=== PATIENT | male | born 1980 | race Caucasian/White ===

== ENCOUNTER 2019-06-21 13:31 | Emergency (ER) | payer OTHER ==
[~2019-06-21] VITALS: Ht 172.7 cm; Wt 68.0 kg
--- NOTE | 2019-06-21 13:31 | NUR ---
PATIENT TO BED 5 BY EMS AT THIS TIME.
--- NOTE | 2019-06-21 13:37 | NUR ---
DR. MIKE AT BEDSIDE EVALUATING PATIENT.
[2019-06-21 13:40] VITALS: BP 113/70
[2019-06-21] MEDS: NACL 0.9% 1,000 ML IV ONE ×2 (14:03→17:24)
[2019-06-21 14:28] LABS: BASOPHILS # (AUTO) 0.1 K/uL (0.00-0.22); EOSINOPHILS % (AUTO) 0.3 % (0.0-4.0); HEMATOCRIT 39.2 % (36-52); HEMOGLOBIN 13.2 g/dL (12.0-18.0); LYMPHOCYTES # (AUTO) 1.3 K/uL (2.0-11.5); MEAN CORPUSCULAR HEMOGLOBIN 31 pg (27-31); MEAN CORPUSCULAR HGB CONC 34 g/dL (33-37); MONOCYTES # (AUTO) 0.3 K/uL (0.8-1.0); MONOCYTES % (AUTO) 5.1 % (1.7-9.3); NEUTROPHILS # (AUTO) 3.5 K/uL (1.8-7.7); NEUTROPHILS % (AUTO) 68.6 % (42.2-75.2); PLATELET COUNT (AUTO) 297 K/uL (140-450); RED BLOOD CELL COUNT(AUTO) 4.22 MIL/uL (4.20-6.10); RED CELL DISTRIBUTION WIDTH 13.7 % (11.6-13.7); WHITE BLOOD COUNT (AUTO) 5.1 K/uL (4.8-10.8)
--- NOTE | 2019-06-21 14:28 | NUR ---
PT BIBA WITH C/O ALOC. PT WAS FOUND IN PARKING LOT OF [place] [employer] ON SCENE [employer] STICKS WERE USED TO AWAKE PT. 1/2 PINT OF ALCOHOL WAS FOUND ON SCENE. 20 GAUGE L. AC ESTABLISHED ON SCENE. PT ONLY ABLE TO STATE NAME. PT PRESENTS WITH A SLURRED SPEECH AND IS NOT ABLE TO CONVERSE APPROPRIATELY. PUPILS 6MM SLUGGISH. MILD WEAKNESS BILATERALLY. SKIN IS WARM, PINK, AND DRY. VSS. PT POSITIONED FOR COMFORT. HOB ELEVATED. BED RAIL UP X 2 FOR PT SAFETY. ER MD AWARE OF PT STATUS. ALLERGIES: NKA MED HX: DEPRESSION AND ETOH ABUSE RX: UNKNOWN
--- NOTE | 2019-06-21 14:29 | NUR ---
PER , PT LEFT REHAB 3 DAYS AGO. PT WAS IN REHAB FOR 2 MONTHS FOR ALCOHOL USE.
[2019-06-21 14:51] LABS: ANION GAP 17.2 (8-16); CARBON DIOXIDE 25.8 mmol/L (21-32); CHLORIDE 105 mmol/L (98-107); CREATININE 0.9 mg/dL (0.7-1.3); GFR ARICAN-AMERICAN 121 mL/min (>90); GLUCOSE 108 mg/dL (74-106); SODIUM SERUM 144 mmol/L (136-145); UREA NITROGEN, BLOOD 8 mg/dL (7-18)
[2019-06-21 15:05] LABS: ALBUMIN 3.6 g/dL (3.4-5.0); ASPARTATE AMINOTRANSFERASE 60 U/L (15-37); SALICYLATE < 2.8 mg/dL (2.8-20.0); TOTAL BILIRUBIN 0.3 mg/dL (0.0-1.0)
[2019-06-21 15:07] LABS: ACETAMINOPHEN < 0.5 ug/ml (10-30)
[2019-06-21 15:17] LABS: BARBITURATE, URINE NEG. ng/ml (NEG <=200); BENZODIAZEPINE, URINE NEG. ng/mL (NEG <=200); CANNABINOID, URINE NEG. ng/mL (NEG <=50); COCAINE, URINE NEG. ng/mL (NEG <=300); OPIATE, URINE NEG. ng/mL (NEG <=2000); PHENCYCLIDINE SCREEN,URINE NEG. ng/mL (NEG <=25)
[2019-06-21] MEDS: LORazepam 2 MG/ML VIAL IVP ONE (18:06)
[2019-06-21] MEDS: ONDANSETRON 4 MG/2 ML VIAL IVP ONE (18:27)
[2019-06-21 18:54] VITALS: BP 110/72
--- NOTE | 2019-06-21 18:54 | NUR ---
Patient discharged with v/s stable. Written and verbal after care instructions given and explained. Patient alert, oriented and verbalized understanding of instructions. Ambulatory with steady gait. All questions addressed prior to discharge. ID band removed. Patient advised to follow up with PMD. Rx of ATIVAN, AND ZOFRAN given. Patient educated on indication of medication including possible reaction and side effects. Opportunity to ask questions provided and answered.
== END 2019-06-21 18:54 | disposition home or self-care (01) ==
LOC: MED 13:31
DX: F10.129 Alcohol abuse with intoxication, unspecified (principal)
CPT/HCPCS: 36415; 80053; 80305; 85025; 96374; 96375; 99283; G0480; G0482; J2060; J2405; J7030